=== PATIENT | male | born 1995 | race African-American/Black ===

== ENCOUNTER 2021-06-12 10:53 | Emergency (ER) | payer OTHER ==
[~2021-06-12] VITALS: Ht 175.3 cm; Wt 105.5 kg
[2021-06-12 11:23] VITALS: BP 140/91; TEMP 98.4
[2021-06-12 13:21] VITALS: PULSE 65
[2021-06-12] MEDS ORDERED: NORCO 325 MG-51 TAB PO (13:28)
[2021-06-12] MEDS ORDERED: MOTRIN 800800 MG/TAB PO (13:28)
== END 2021-06-12 13:40 | disposition home or self-care (01) ==
LOC: COL.ER 10:53
DX: M54.9 Dorsalgia, unspecified (principal); V43.52XA Car driver injured in collision with other type car in traffic accident, initial encounter; Y92.410 Unspecified street and highway as the place of occurrence of the external cause

== ENCOUNTER 2021-06-16 11:29 | Emergency (ER) | payer OTHER ==
[~2021-06-16] VITALS: Ht 177.8 cm; Wt 106.8 kg
[~2021-06-16 11:29] MED LIST: MOTRIN 800800 MG/TAB PO; NORCO 325 MG-51 TAB PO
[2021-06-16 11:42] VITALS: TEMP 98.1
[2021-06-16] MEDS ORDERED: VOLTAREN 75 DR75 MG PO (13:12)
[2021-06-16 13:22] VITALS: BP 128/78; PULSE 78
== END 2021-06-16 13:22 | disposition home or self-care (01) ==
LOC: COL.ER 11:29
DX: S16.1XXA Strain of muscle, fascia and tendon at neck level, initial encounter (principal); V49.9XXA Car occupant (driver) (passenger) injured in unspecified traffic accident, initial encounter

== ENCOUNTER 2023-05-15 09:08 | Emergency (ER) | payer OTHER ==
[~2023-05-15] VITALS: Ht 175.3 cm; Wt 111.4 kg
[~2023-05-15 09:08] MED LIST changes: +VOLTAREN 75 DR75 MG PO
[2023-05-15 09:12] VITALS: TEMP 98.8
[2023-05-15] MEDS ORDERED: INDERAL 10MG10 MG PO (09:15)
[2023-05-15] MEDS ORDERED: VITAMIN D 50,1.25 MG PO (09:16)
[2023-05-15] MEDS ORDERED: CYMBALTA 60MG60 MG (09:16)
[2023-05-15] MEDS ORDERED: PROTONIX20 MG PO (09:16)
[2023-05-15] MEDS ORDERED: SEROQUEL300 MG PO (09:16)
[2023-05-15] MEDS ORDERED: ROBAXIN 50500 MG/TAB PO (09:16)
[2023-05-15] MEDS ORDERED: PRINIVIL40 MG (09:16)
[2023-05-15] MEDS ORDERED: TYLENOL 325MG325 MG PO (09:16)
[2023-05-15] MEDS ORDERED: NAPROSYN500 MG PO (09:16)
[2023-05-15 10:49] VITALS: BP 119/67; PULSE 73
== END 2023-05-15 10:53 | disposition home or self-care (01) ==
LOC: COL.ER 09:08
DX: J10.1 Influenza due to other identified influenza virus with other respiratory manifestations (principal); F17.210 Nicotine dependence, cigarettes, uncomplicated